=== PATIENT | male | born 1980 | race Caucasian/White ===

== ENCOUNTER 2018-02-06 18:37 | Outpatient (REF) | payer BC, SELFPAY ==
[2018-02-06 21:05] LABS: Anion Gap 9.3 mmol/L (3-11); BUN 15 mg/dL (7-18); CO2 27.7 mmol/L (21.0-32.0); Calcium 8.8 mg/dL (8.5-10.1); Chloride 102 mmol/L (98-107); Cholesterol 259 mg/dL (50-200); Glucose 100 mg/dL (70-100); HDL Cholesterol 28 mg/dL (40-60); LDL CHOLESTEROL 158 mg/dL (<100); Potassium 4.1 mmol/L (3.5-5.1); Sodium 139 mmol/L (136-145); Triglyceride 454 mg/dL (30-150)
== END 2018-02-06 18:57 ==
LOC: NCHCN 18:37
PROVIDERS: PCP Specialist/Technologist Athletic Trainer; Visit Provider Specialist/Technologist Athletic Trainer
DX: F41.9 Anxiety disorder, unspecified (principal); Z00.00 Encounter for general adult medical examination without abnormal findings; Z13.228 Encounter for screening for other metabolic disorders; Z13.220 Encounter for screening for lipoid disorders
CPT/HCPCS: 80048; 80061; 83721

== ENCOUNTER 2018-09-25 17:20 | Outpatient (REF) | payer BC, SELFPAY ==
[2018-09-25 21:51] LABS: Abs Immature Grans 0.02 k/cumm (0.0-0.09); Absolute Basophil Count 0.02 k/cumm (0.0-0.2); Absolute Eosinophil Count 0.16 k/cumm (0.0-0.7); Absolute Lymphocyte Count 1.72 k/cumm (1.2-3.4); Absolute Monocyte Count 0.61 k/cumm (0.11-0.7); Absolute Neutrophil Count 4.67 k/cumm (1.2-6.7); Basophils % 0.3; Eosinophils % 2.2; HCT 43.5 % (40.0-50.0); HGB 15.6 g/dL (13.5-17.5); Immature Grans % 0.3; Lymphocytes % 23.9; Mean Corp. HGB Concentration 35.9 g/dL (32.0-36.0); Mean Corpuscular Hemoglobin 30.4 pg (27.0-33.0); Mean Corpuscular Volume 84.6 fL (80-95); Mean Platelet Volume 10.5 fL (8.0-11.0); Monocytes % 8.5; Neutrophils % 64.8; Platelet Count 260 x1000/uL (130-400); RBC 5.14 m/cumm (4.50-6.00); RBC Distribution Width 12.5 % (11.8-14.1)
[2018-09-25 22:10] LABS: Albumin 3.9 g/dL (3.4-5.0); Alkaline Phosphatase 57 U/L (46-116); Anion Gap 10.4 mmol/L (3-11); BUN 14 mg/dL (7-18); Bilirubin, Total 0.5 mg/dL (0.2-1.0); CO2 24.6 mmol/L (21.0-32.0); CREATININE 0.99 mg/dL (0.70-1.30); Calcium 8.9 mg/dL (8.5-10.1); Chloride 102 mmol/L (98-107); Glucose 119 mg/dL (70-100); Potassium 4.1 mmol/L (3.5-5.1); Sodium 137 mmol/L (136-145); Total Protein 6.9 g/dL (6.4-8.2)
[2018-09-25 22:30] LABS: Mono Screening Negative (Negative)
[2018-09-25 22:51] LABS: ALT 66 U/L (12-78); AST 33 U/L (15-37)
== END 2018-09-25 17:40 ==
LOC: NCHCN 17:20
PROVIDERS: PCP Specialist/Technologist Athletic Trainer; Visit Provider Nurse Practitioner Family
DX: R53.83 Other fatigue (principal)
CPT/HCPCS: 80053; 85025; 86308; 87070

== ENCOUNTER 2018-10-29 13:19 | Emergency (ER) | payer BC, SELFPAY ==
[2018-10-29 13:22] VITALS: BP 132/76; PULSE 82; RESP 16; TEMP 36.9; O2SAT 97
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
== END 2018-10-29 14:35 | disposition home or self-care (01) ==
PROVIDERS: Emergency Provider Physician Assistant; PCP Specialist/Technologist Athletic Trainer
DX: H72.91 Unspecified perforation of tympanic membrane, right ear (principal)
CPT/HCPCS: 99283

== ENCOUNTER 2019-02-05 07:31 | Emergency (ER) | payer BC, SELFPAY ==
[2019-02-05] VITALS (48 sets, daily range): BP systolic 98–138; BP diastolic 55–79; PULSE 62–82; RESP 9–24; TEMP 36.6; O2SAT 94–98
--- NOTE | 2019-02-05 07:47 | W.ED.GENAD ---
Discharge Plan Disposition Patient Disposition: HOME Condition: Good Discharge Details Chief Complaint: Chest Pain Clinical Impression: Chest pain Primary Care Provider: Uriah Parra ED Provider: Dexter Pillai Home Meds and New Rx's Prescriptions: No Action venlafaxine 37.5 mg Tablet 37.5 mg PO BID RF: 0 atorvastatin 20 mg Tablet 20 mg PO QPM RF: 0 omeprazole 40 mg Capsule,Delayed Release(Dr/Ec) 40 mg PO DAILY RF: 0 calcium carbonate [Calcium Antacid Ultra Max St] 400 mg calcium (1,000 mg) Tablet,Chewable 1,000 mg PO PRN PRNRF: 0 loratadine [Claritin] 10 mg Tablet 10 mg PO DAILY PRNRF: 0 Discharge Instructions Instructions: Chest Pain (ED) Additional Instructions: At this time your EKGs and your blood work show no evidence of acute heart attack or blood clot. I suspect your symptoms potentially from muscles, pleurisy, or potentially reflux. If you notice any worsening of your symptoms, or any new symptoms such as vomiting, diarrhea, fever, chills, shortness of breath, chest pain, numbness, weakness, or fainting , please return immediately to the emergency department for reevaluation. Please follow up with your primary care provider as soon as possible for reassessment and reevaluation. As always, it was a pleasure participating in your medical care today. Referrals: Uriah Parra [Primary Care Provider] - Medical Decision Making This is a pleasant 38-year-old male with a past medical history of high cholesterol and GERD who presents today for evaluation of chest pain. He had an episode that lasted an hour 1 week ago, then return of symptoms roughly 30 minutes prior to arrival while he was driving and from work. No exertional component. No concerning historical red flags of tearing or ripping sensation, PE risk factors, tobacco abuse. He does have a strong family history of cardiac disease though. He did state that he had a negative stress test if you years ago. Physical exam is notably reassuring, vital signs normal, EKG does show atypical inverted T waves in V1 through V4, no prior EKG here for comparison. We will reach out to [facility] for further medical records. Although he states that his symptoms are atypical for his GERD, it certainly does raise concern for GERD with the burning sensation in his chest. Because of his strong family history we will order cardiac work-up, including serial troponins. We will give GI cocktail. Will monitor closely and reassess. Differential at this time is highest for GERD, musculoskeletal etiology and less likely for atypical ACS. 8:11 AM Stress test from [facility] demonstrates a negative cardiac stress test, no evidence of ischemia at that time. This was performed 10 years ago. He did have a mild incomplete right bundle branch block. EKG at that time shows inverted T waves in V1 and V3. No other abnormalities. Patient had no improvement of his symptoms with GI cocktail. 11:42 AM Patient's repeat troponin has returned normal, serial EKGs are unremarkable. Signs and symptoms appear clinically inconsistent with ACS. Heart score is low risk category. Signs and symptoms appear more consistent with nonspecific chest pain. We discussed risks and benefits of observation versus discharge, and at this time the patient feels comfortable at home. Patient will be discharged home with recommendations for close follow-up with his primary care provider. Discussed red flags which to return. I have extensively reviewed the treatment plan and discharge instructions with the patient. I have addressed all patient concerns at this time. The patient was made aware of what symptoms to monitor for that would warrant a return to the emergency department. Discussed the plan with the patient, they demonstrate verbal understanding and agreement with our assessment and plan at this time. EKG 7: 38 Rate 76, intervals normal except for a shortened AK, sinus rhythm, with incomplete right bundle branch block no significant ST elevations or depression, inverted T waves in V1 through V4, small Q wave in lead III. No evidence of STEMI. EKG 10: 41 Rate 69, intervals normal except for a shortened AK 166, slight QRS prolongation when awake, incomplete right bundle branch block, continued inverted T waves in V1 through V3. No evidence of STEMI. Small Q wave is present in lead III. FINDINGS: The heart is not enlarged. Lungs are clear. No pleural effusion seen. Conclusion no evidence of acute process. IMPRESSION: HPI General Date/Time Provider Initiated Documentation: 02/05/19 07:36. HPI Narrative: This is a pleasant 38-year-old male with a past medical history of high cholesterol, who presents today for evaluation of chest pain. Patient states that he had an episode that lasted 1 hour a week ago, this resolved on its own with rest and relax meant, it was nonexertional in onset. Throughout the week he was fine, however 30 minutes ago he had return of his symptoms while driving in from work. He describes it is a burning sensation in his chest, that radiates to his left shoulder. He denies any tearing or ripping sensation. He denies any chest heaviness. He denies any exertional component. He denies any positional component. He came to the ER for further assessment. Upon arrival to the ED his pain is notably improved. He now describes it as a dull ache. He does have a history of GERD but he states that this feels very different from that. He does have a strong family history of cardiac disease and did have a negative stress test 10 years ago. Denies PE risk factors such as recent long car rides, immobilization, recent surgery, prior history of DVT or PE, family history of PE or DVT, morbid obesity, exogenous estrogen and smoking, hemoptysis, history of cancer.He denies any other complaints at this time. No other modifying factors. Related Data Home Medications Medication Instructions Recorded Confirmed venlafaxine 37.5 mg PO BID 10/29/18 02/05/19 atorvastatin 20 mg PO QPM 02/05/19 02/05/19 calcium carbonate [Calcium Antacid 1,000 mg PO PRN PRN 02/05/19 02/05/[address]] loratadine [Claritin] 10 mg PO DAILY PRN 02/05/19 02/05/19 omeprazole 40 mg PO DAILY 02/05/19 02/05/19 Allergies Allergy/AdvReac Type Severity Reaction Status Date / Time No Known Allergies Allergy Unverified 02/05/19 07:43 General Stated Complaint: Chest Pain KELVIN: 2 Review of Systems Review of Systems ROS Unobtainable: All systems reviewed & are unremarkable except as noted in HPI and below [facility] Medical History (Updated 10/29/18 @ 13:33 by Kourtney Pop DO) Anxiety (Chronic) Social History Smoking/Tobacco Use Status: Never Alcohol Intake: current Alcohol Intake frequency: a few times a month Alcohol type: beer, wine and hard liquor Drug use: Never Do you feel safe at home: Yes Do you feel safe in your relationship?: Yes Exam Narrative Exam Narrative: 1.Const: Well-nourished, Well-developed, appearing stated age 2.Eyes: PERRL, no conjunctival injection, and symmetrical lids. 3.ENT: Atraumatic external nose and ears. Moist MM. Neck: Symmetric, trachea midline, No thyromegaly. 4.CVS: +S1/S2, No murmurs or gallops. Peripheral pulses 2+ and equal in all extremities. Brisk capillary refill in all extremities. 5.RESP: Unlabored respiratory effort. Clear to auscultation bilaterally. No wheezes rales or rhonchi 6.GI: Soft, Nontender/Nondistended, No hepatosplenomegaly. No guarding or rebound. 7.MSK: Normocephalic/Atraumatic, Extremities w/o deformity or ttp No cyanosis or clubbing, Normal movement of all extremities 8.Skin: Warm, Dry. No rashes or lesions. 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 Sensation grossly intact, no focal neurologic deficits. 10.Psych: (AAO) x3. Appropriate mood and affect Course Vital Signs Vital signs: Vital Signs Temperature 36.6 C 02/05/19 07:38 Pulse 78 02/05/19 07:38 Respiratory Rate 14 02/05/19 07:38 Blood Pressure 129/77 02/05/19 07:38 Pulse Oximetry 98 02/05/19 07:38 Temperature 36.6 C 02/05/19 07:38 Temperature Source Temporal Artery Scan 02/05/19 07:38 Pulse 78 02/05/19 07:38 Respiratory Rate 14 02/05/19 07:38 Respiratory Effort Non-Labored 02/05/19 07:42 Blood Pressure 129/77 02/05/19 07:38 Blood Pressure Position Supine 02/05/19 07:38 Pulse Oximetry 98 02/05/19 07:38 Oxygen Delivery Method Room Air 02/05/19 07:38 Oxygen Flow Rate 0 02/05/19 07:38 Pain Level 4 02/05/19 07:38
[2019-02-05] MEDS: Acetaminophen 500 MG TAB 1000 MG PO (07:53)
[2019-02-05] MEDS: Aspirin 81 MG CHEW 324 MG CH (07:53)
[2019-02-05] MEDS: Normal Saline 1,000 ML 1000 ML IV (07:57)
[2019-02-05 07:58] LABS: Abs Immature Grans 0.02 k/cumm (0.0-0.09); Absolute Basophil Count 0.02 k/cumm (0.0-0.2); Absolute Eosinophil Count 0.09 k/cumm (0.0-0.7); Absolute Lymphocyte Count 1.28 k/cumm (1.2-3.4); Absolute Monocyte Count 0.44 k/cumm (0.11-0.7); Absolute Neutrophil Count 4.17 k/cumm (1.2-6.7); Basophils % 0.3; Eosinophils % 1.5; HCT 45.7 % (40.0-50.0); HGB 16.4 g/dL (13.5-17.5); Immature Grans % 0.3; Lymphocytes % 21.3; Mean Corp. HGB Concentration 35.9 g/dL (32.0-36.0); Mean Corpuscular Volume 83.7 fL (80-95); Mean Platelet Volume 9.7 fL (8.0-11.0); Monocytes % 7.3; Neutrophils % 69.3; Platelet Count 259 x1000/uL (130-400); RBC 5.46 m/cumm (4.50-6.00); RBC Distribution Width 12.4 % (11.8-14.1); White Blood Cell Count 6.02 k/cumm (4.4-10.8)
[2019-02-05 08:11] LABS: ALT 80 U/L (16-63); AST 22 U/L (15-37); Alkaline Phosphatase 55 U/L (46-116); Anion Gap 9.4 mmol/L (3-11); BUN 18 mg/dL (7-18); Bilirubin, Total 0.6 mg/dL (0.2-1.0); CO2 27.6 mmol/L (21.0-32.0); CREATININE 1.14 mg/dL (0.70-1.30); Calcium 8.7 mg/dL (8.5-10.1); Chloride 103 mmol/L (98-107); Glucose 103 mg/dL (70-100); PTT Activated 25.9 sec (21.0-31.4); Potassium 3.7 mmol/L (3.5-5.1); Prothrombin Time 10.5 sec (9.3-11.0); Sodium 140 mmol/L (136-145); Total Protein 7.4 g/dL (6.4-8.2)
--- NOTE | 2019-02-05 08:15 | DI.RAD_ITS ---
EXAM: XR CHEST 2V PA LATERAL INDICATION: left sided CP. COMPARISON: ABD FLAT UPRIGHT PA CHEST from 06/10/2015 TECHNIQUE: 2D digital imaging was performed. FINDINGS: The heart is not enlarged. Lungs are clear. No pleural effusion seen. Conclusion no evidence of ac savi process. IMPRESSION:
[2019-02-05 08:16] LABS: Troponin I < 0.05 ng/mL (0.00-0.06)
[2019-02-05 08:34] LABS: D-Dimer 300 ng/mlFEU (<500)
[2019-02-05 11:20] LABS: Troponin I < 0.05 ng/mL (0.00-0.06)
== END 2019-02-05 12:07 | disposition home or self-care (01) ==
PROVIDERS: Emergency Provider Student in an Organized Health Care Education/Training Program; PCP Specialist/Technologist Athletic Trainer
DX: R07.9 Chest pain, unspecified (principal)
CPT/HCPCS: 36415; 80053; 93005; 96360; 99285; 71046; 84484; 85025; 85379; 85610; 85730; 93010

== ENCOUNTER 2019-02-09 14:49 | Outpatient (CLI) | payer BC, SELFPAY ==
[2019-02-09 19:15] LABS: Calculated LDL 108 mg/dL; Cholesterol 211 mg/dL (50-200); HDL Cholesterol 24 mg/dL (40-60); Triglyceride 396 mg/dL (30-150)
== END 2019-02-09 15:09 ==
PROVIDERS: PCP Specialist/Technologist Athletic Trainer; Visit Provider Specialist/Technologist Athletic Trainer
DX: Z13.220 Encounter for screening for lipoid disorders (principal)
CPT/HCPCS: 80061

== ENCOUNTER 2019-09-10 13:53 | Outpatient (CLI) | payer BC, SELFPAY ==
--- NOTE | 2019-09-10 14:53 | DI.RAD_ITS ---
EXAM: XR SHOULDER RT COMPLETE 2+V CLINICAL HISTORY: RT SHOULDER PAIN, M25.511. TECHNIQUE: 2D digital imaging was performed. COMPARISON: No exams were available for comparison FINDINGS: BONES: No acute fracture is present. No bony destructive lesion is seen. JOINTS: No dislocation present. Mild degenerative changes are seen at the acromioclavicular joint. SOFT TISSUE: Normal. IMPRESSION: Mild degenerative changes of the right AC joint. DATA REPOSITORY: RADIATION DOSE DELIVERED:
== END 2019-09-10 14:13 ==
PROVIDERS: PCP Specialist/Technologist Athletic Trainer; Visit Provider Nurse Practitioner Family
DX: M25.511 Pain in right shoulder (principal); M19.011 Primary osteoarthritis, right shoulder
CPT/HCPCS: 73030

== ENCOUNTER 2022-03-19 16:29 | Emergency (ER) | payer BC, SELFPAY ==
[2022-03-19 16:37] VITALS: BP 127/79; PULSE 72; RESP 16; TEMP 36.9; O2SAT 98
--- NOTE | 2022-03-19 17:12 | DI.RAD_ITS ---
Exam(s) XR CERVICAL SPINE COMP 4-5V EXAM: XR CERVICAL SPINE COMP 4-5V CLINICAL HISTORY: Neck pain. TECHNIQUE: 2D digital imaging was performed. COMPARISON: No exams were available for comparison FINDINGS: BONES: No fracture or destructive lesion. Vertebral bodies are unremarkable. DISKS: Intervertebral disc spaces are maintained. ALIGNMENT: Some straightening of the normal cervical lordosis which could be secondary to muscle spas m. The odontoid and atlantoaxial articulations are normal. SOFT TISSUE: Normal. The lung apices are clear. IMPRESSION: Unremarkable radiographs of the cervical spine. DATA REPOSITORY: RADIATION DOSE DELIVERED:
--- NOTE | 2022-03-19 17:13 | W.ED.GENAD ---
Discharge Plan Disposition Patient Disposition: Home Condition: Stable Discharge Details Clinical Impression: Cervical radicular pain Primary Care Provider: Unknown,Unknown ED Provider: Meeta Olguin Home Meds and New Rx's Prescriptions: Continued atorvastatin 20 mg Tablet 20 mg PO QPM Label Comments: states he should be taking but doesn't omeprazole 40 mg Capsule,Delayed Release(Dr/Ec) 20 mg PO DAILY loratadine [Claritin] 10 mg Tablet 10 mg PO DAILY PRN ibuprofen [Ibuprofen IB] 200 mg Tablet 400 mg PO Q4H PRN acetaminophen 500 mg Tablet 1,000 mg PO Q4H Discharge Instructions Instructions: Neck Pain (ED) Additional Instructions: Please take the tramadol and muscle relaxers as directed. Do not drive while taking these medications as it may make you sleepy. Follow up with primary care provider in 3-5 days. Return to ED sooner if any worsening or concerns. Increase oral fluids. Please take Tylenol or Ibuprofen with food every 4-6 hours as needed for pain and swelling. Medical Decision Making 41-year-old male presents to the ER with chief complaint of stiff neck which is worsened over the last couple of days. He reports that when he extends his neck Except for the ceiling he gets some numbness and tingling in his left arm. He denies any recent trauma. Cervical x-ray ordered, Flexeril This time reaction, sepsis, unremarkable physical exam. Reevaluation patient reports that he feels much better after the Flexeril. We will give tramadol to go which patient reports he is taking that before. Discussed strict return instructions and follow-up care patient will place care management list today to establish PCP. This text was generated using [employer] system, please disregard any oddities of phrase or misspellings. Imaging Data Radiologic Study: Imaging: X-Ray Radiologist's impression: Imaging protocol: XR of the spine. Exam focused on the cervical spine. Views: 1 view. COMPARISON: CR CERVICAL SP. LIMITED (TRAUMA) 06/10/2015 14:24 FINDINGS: Bones/joints: Straightening of the normal cervical lordosis. No acute fracture or subluxation. No significant degenerative changes are seen. Soft tissues: Normal. IMPRESSION: No significant degenerative changes are seen. Sign Out No HPI General Mode of arrival: ambulatory. Date/Time Provider Initiated Documentation: 03/19/22 16:36. Limitations to Documentation: no limitations. Information obtained by: patient, RN notes reviewed and old records reviewed. HPI Narrative: 41-year-old male presents to the ER with chief complaint of stiff neck which is worsened over the last couple of days. He reports that when he extends his neck Except for the ceiling he gets some numbness and tingling in his left arm. He denies any recent trauma. This past medical history impingement syndrome of his right shoulder exercises right shoulder. He has been taking Tylenol and ibuprofen levels no relief. He reports that he usually sees a chiropractor in stretches and that will relieve his pain. He also endorses headaches from the radiation of the pain. Related Data Home Medications Medication Instructions Recorded Confirmed atorvastatin 20 mg tablet 20 mg PO QPM 02/05/19 09/25/19 loratadine 10 mg tablet (Claritin) 10 mg PO DAILY PRN 02/05/19 03/19/22 omeprazole 40 mg capsule,delayed 20 mg PO DAILY 02/05/19 03/19/22 release acetaminophen 500 mg tablet 1,000 mg PO Q4H 03/19/22 03/19/22 ibuprofen 200 mg tablet (Ibuprofen 400 mg PO Q4H PRN 03/19/22 03/19/22 IB) Allergies Allergy/AdvReac Type Severity Reaction Status Date / Time No Known Allergies Allergy Unverified 03/19/22 16:43 General Stated Complaint: Nk/Back Pain KELVIN: 3 Review of Systems All systems reviewed & are unremarkable except as noted in HPI and below ENT Ears, Nose, Mouth, and Throat: Reports neck pain Musculoskeletal Musculoskeletal: Reports as per HPI, Reports neck pain, Reports radiating pain into limb (Left arm), Reports stiffness and Reports tingling Neurologic Neurologic: Reports tingling PFSH All Active Problems (Updated 03/19/22 @ 18:36 by Meeta Olguin NP) Cervical radicular pain (Acute) No-show for appointment (Acute) Impingement syndrome of right shoulder (Acute ~05/2019) Bursitis of right shoulder (Acute ~05/2019) SLAP lesion of right shoulder (Acute ~05/2019) Medical History (Updated 03/19/22 @ 18:36 by Meeta Olguin NP) Anxiety Surgical History H/O wisdom tooth extraction Social History Smoking/Tobacco Use Status: Never Smoking risk assessment performed?: Yes Alcohol Intake: current Alcohol Intake frequency: a few times a month Alcohol type: beer, wine and hard liquor Drug use: Never Do you feel safe at home: Yes Do you feel safe in your relationship?: Yes Exam Narrative Exam Narrative: Constitutional: Alert and oriented x3. Appears stated age. Normal body habitus. Head: Normocephalic, no trauma. Eyes: Pupils PERRL, Red reflex noted, EOM's intact. Eyelids symmetrical without lesions, discharge, or swelling. ENT: Bilateral TM's WNL, External ear normal to inspection, no mastoid TTP, swelling, or erythema, Nasal turbinates WNL, no nasal discharge. Normal dentition, Posterior pharynx WNL, no exudate. Chest: RRR, Normal S1, S2, distal pulses intact. Resp: Lungs clear to auscultation bilaterally, no wheezes, rales, or rhonchi. Abdomen: Soft, non-distended, Normoactive bowel sounds all 4 quads. Musculoskeletal: Normal gait, 5/5 strength to all four extremities. Patient is able to rotate head without difficulty no tenderness with palpation to the C-spine or paraspinous tenderness. Skin: No suspicious rashes or lesions. Capillary refill less than 2 sec. Neurologic: Cranial nerves II-XII intact. Alert and oriented x 3. Motor: No deficits noted. Sensory: Intact bilaterally all 4 extremities. Reflexes: DTR's intact bilaterally.. Hematologic/Lymphatic: No ecchymosis, no lymphadenopathy. Course Vital Signs Vital signs: Vital Signs Temperature 36.9 C 03/19/22 16:37 Pulse 72 03/19/22 16:37 Respiratory Rate 16 03/19/22 16:37 Blood Pressure 127/79 03/19/22 16:37 Pulse Oximetry 98 03/19/22 16:37 Temperature 36.9 C 03/19/22 16:37 Temperature Source Skin 03/19/22 16:37 Pulse 72 03/19/22 16:37 Respiratory Rate 16 03/19/22 16:37 Blood Pressure 127/79 03/19/22 16:37 Blood Pressure Position Sitting 03/19/22 16:37 Pulse Oximetry 98 03/19/22 16:37 Oxygen Delivery Method Room Air 03/19/22 16:37 Oxygen Flow Rate 0 03/19/22 16:37 Pain Level 5 03/19/22 16:37
[2022-03-19] MEDS: Cyclobenzaprine 10 MG TAB PO (17:58)
--- NOTE | 2022-03-19 18:25 | DI.VRAD_ITS ---
PROCEDURE INFORMATION: Exam: XR Spine; Cervical Exam date and time: 03/19/2022 17:23 Age: 41 years old Clinical indication: Symptoms: Neck pain TECHNIQUE: Imaging protocol: XR of the spine. Exam focused on the cervical spine. Views: 1 view. COMPARISON: CR CERVICAL SP. LIMITED (TRAUMA) 06/10/2015 14:24 FINDINGS: Bones/joints: Straightening of the normal cervical lordosis. No acute fracture or subluxation. No significant degenerative changes are seen. Soft tissues: Normal. IMPRESSION: No significant degenerative changes are seen. Dictated and Authenticated by: Diamante Downey MD. Ordering:JOHN Tim MD
--- NOTE | 2022-03-19 18:36 | NUR.NOTE ---
Nursing Note: PT info given to care management to establish care. Mariama, ED
[2022-03-19 18:40] VITALS: BP 128/82; PULSE 67; TEMP 36.5; O2SAT 96
[2022-03-19] MEDS: Cyclobenzaprine 10 MG TAB, 3 TABS/BTL PO (18:47)
== END 2022-03-19 18:46 | disposition home or self-care (01) ==
PROVIDERS: Emergency Provider Registered Nurse Emergency; PCP Nurse Practitioner Family
DX: M54.12 Radiculopathy, cervical region (principal)
CPT/HCPCS: 99283; 72050; 99284

== ENCOUNTER 2022-04-08 13:52 | Outpatient (REF) | payer BC, SELFPAY ==
[2022-04-08 15:21] LABS: ALT 66 U/L (16-63); AST 22 U/L (15-37); Albumin 4.4 g/dL (3.4-5.0); Alkaline Phosphatase 56 U/L (46-116); Anion Gap 8.2 mmol/L (3-11); BUN 13 mg/dL (7-18); Bilirubin, Total 0.6 mg/dL (0.2-1.0); CO2 28.8 mmol/L (21.0-32.0); Calcium 9.4 mg/dL (8.5-10.1); Chloride 100 mmol/L (98-107); Cholesterol 272 mg/dL (<200); Estimated GFR 98.18 (mL/min/1.73m2); Glucose 96 mg/dL (74-106); HDL Cholesterol 32 mg/dL (40-60); Potassium 4.6 mmol/L (3.5-5.1); Sodium 137 mmol/L (136-145); Total Protein 7.4 g/dL (6.4-8.2); Triglyceride 407 mg/dL (<150)
[2022-04-08 15:42] LABS: LDL CHOLESTEROL 158 mg/dL (<100)
== END 2022-04-08 13:53 | disposition home or self-care (01) ==
LOC: NCHCN 13:52
PROVIDERS: Visit Provider Nurse Practitioner Family
DX: E78.5 Hyperlipidemia, unspecified (principal); Z00.00 Encounter for general adult medical examination without abnormal findings
CPT/HCPCS: 80053; 80061; 83721

== ENCOUNTER 2023-04-04 10:11 | Outpatient (REF) | payer BC, SELFPAY ==
--- OUTSIDE RECORDS SUMMARY | 2023-04-04 10:17 | XMS_ITS | Continuity of Care Document ---
Author Name Unknown Organization [facility] Address [address] [place] [id number] Encounter [facility] FIN NBR [id number] Date(s): 01/02/23 - 01/02/[address] [id number] Encounter Diagnosis Cervicalgia(Discharge Diagnosis) - 01/02/23 Discharge Disposition: Home or Self Care Attending Physician: Bharath Albrecht MD Admitting Physician: Bharath Albrecht MD Allergies, Adverse Reactions, Alerts No Known Medication Allergies Medications atorvastatin 10 mg oral tablet 0 Refill(s) Start Date: 01/02/23 Status: Ordered cyclobenzaprine 10 mg oral tablet TAKE 1 TABLET BY MOUTH EVERY 8 HOURS NEEDED FOR NECK PAIN Start Date: 01/02/23 Status: Ordered cyclobenzaprine 5 mg oral tablet 5 mg = 1 tab, Oral, TID, PRN as needed for muscle spasm, X 5 days, # 15 tab, 0 Refill(s), 01/07/23 10:14:00 AM CDT, Pharmacy: [facility] [id number], 167, cm, 01/02/23 11:01:00 EDT, Height/Length Dosing, 90.7, kg, 01/02/23 11:01:00 EDT, Weight Dosing Start Date: 01/02/23 Stop Date: 01/07/23 Status: Ordered predniSONE 10 mg oral tablet See Instruction, Oral, Daily, 4 tabs daily x3 days, 3 tabs daily x3 days, 2 tabs daily x3 days, 1 tab daily x3 days, X 12 days, # 30 tab, 0 Refill(s), 01/14/23 10:14:00 AM CDT, Pharmacy: [id number], 167, cm, 01/02/23 11:01:00 EDT, Height/Length Dosing, 90.7, kg, 01/02/23 11:01:00 EDT, Weight Dosing Start Date: 01/02/23 Stop Date: 01/14/23 Status: Ordered Mental Status 01/02/23 Eye Opening Response [place] Spontaneous ly Best Verbal Response [place] Oriented Best Motor Response [place] Obeys comman ds Ayana Coma Score 15 Results Radiology Reports * Exam Date Time Procedure Performing Provider Status 01/02/23 11:24 AM XR Spine Cervical 2 or 3 Views Christina Simpson (Verified) Notes: (XR Spine Cervical 2 or 3 Views) Reason For Exam: neck pain XR Spine Cervical 2 or 3 Views PROCEDURE INFORMATION: Exam: XR Cervical Spine Exam date and time: 01/02/2023 11:19 AM Age: 42 years old Clinical indication: Neck pain TECHNIQUE: Imaging protocol: Radiologic exam of the cervical spine. Views: 2 or 3 views. COMPARISON: No relevant prior studies available. FINDINGS: Bones/joints: Degenerative change and diminished cervical lordosis. Anatomic alignment. Soft tissues: Ligamentous calcification. IMPRESSION: Degenerative change and diminished cervical lordosis. THIS DOCUMENT HAS BEEN ELECTRONICALLY SIGNED BY YIFAN FLORENCE MD on 01/02/2023 11:35 AM Final Signed by: Yifan Florence MD Signed (Electronic Signature): 01/02/2023 11:35 am Vital Signs Most recent to oldest [Reference Range]: 1 Temperature Tympanic [36.6-37.9 Deg C] 3 6.2 Deg C *LOW* (01/02/23 10:49 AM) Peripheral Pulse Rate [60-100 bpm] 72 bp m (01/02/23 10:49 AM) Respiratory Rate [12-24 br/min] 20 br/mi n (01/02/23 10:49 AM) Blood Pressure [90-140/60-90 mmHg] 131/8 7mmHg (01/02/23 10:49 AM) Weight 90.70 kg (01/02/23 10:49 AM) Weight Dosing 90.70 kg (01/02/23 11:01 AM) Height 167.000 cm (01/02/23 10:49 AM) Height/Length Dosing 167.000 cm (01/02/23 11:01 AM) Body Mass Index 33.000 kg/m2 (01/02/23 10:49 AM) Social History Social History Type Response Tobacco Never tobacco user T obacco Use:. Sex Hospital Discharge Instructions Patient Education 01/02/2023 10:48:50 Musculoskeletal Pain Musculoskeletal Pain Musculoskeletal pain refers to aches and pains in your bones, joints, muscles, and the tissues thatsurround them. This pain can occur in any part of the body. It can last for a short time (acute) ora long time (chronic). A physical exam, lab tests, and imaging studies may be done to find the cause of your musculoskeletal pain. Follow these instructions at home: Lifestyle ??? Try to control or lower your stress levels. Stress increases muscle tension and can worsen musculoskeletal pain. It is important to recognize when you are anxious or stressed and learn ways to manage it. This may include: ??? Meditation or yoga. ??? Cognitive or behavioral therapy. ??? Acupuncture or massage therapy. ??? You may continue all activities unless the activities cause more pain. When the pain gets better, slowly resume your normal activities. Gradually increase the intensity and duration of your activities or exercise. Managing pain, stiffness, and swelling ??? Treatment may include medicines for pain and inflammation that are taken by mouth or applied tothe skin. Take [id number] and prescription medicines only as told by your health care provider. ??? When your pain is severe, bed rest may be helpful. Lie or sit in any position that is comfortable, but get out of bed and walk around at least every couple of hours. ??? If directed, apply heat to the affected area as often as told by your health care provider. Usethe heat source that your health care provider recommends, such as a moist heat pack or a heating pad. ??? Place a towel between your skin and the heat source. ??? Leave the heat on for 20???30 minutes. ??? Remove the heat if your skin turns bright red. This is especially important if you are unable to feel pain, heat, or cold. You may have a greater risk of getting burned. ??? If directed, put ice on the painful area. To do this: ??? Put ice in a plastic bag. ??? Place a towel between your skin and the bag. ??? Leave the ice on for 20 minutes, 2???3 times a day. ??? Remove the ice if your skin turns bright red. This is very important. If you cannot feel pain, heat, or cold, you have a greater risk of damage to the area. General instructions ??? Your health care provider may recommend that you see a physical therapist. This person can helpyou come up with a safe exercise program. ??? If told by your health care provider, do physical therapy exercises to improve movement and strength in the affected area. ??? Keep all follow-up visits. This is important. This includes any physical therapy visits. Contact a health care provider if: ??? Your pain gets worse. ??? Medicines do not help ease your pain. ??? You cannot use the part of your body that hurts, such as your arm, leg, or neck. ??? You have trouble sleeping. ??? You have trouble doing your normal activities. Get help right away if: ??? You have a new injury and your pain is worse or different. ??? You feel numb or you have tingling in the painful area. Summary ??? Musculoskeletal pain refers to aches and pains in your bones, joints, muscles, and the tissues that surround them. ??? This pain can occur in any part of the body. ??? Your health care provider may recommend that you see a physical therapist. This person can helpyou come up with a safe exercise program. Do any exercises as told by your physical therapist. ??? Lower your stress level. Stress can worsen musculoskeletal pain. Ways to lower stress may include meditation, yoga, cognitive or behavioral therapy, acupuncture, and massage therapy. This information is not intended to replace advice given to you by your health care provider. Make sure you discuss any questions you have with your health care provider. Document Revised: 08/14/2020 Document Reviewed: 07/23/2020 [employer] Patient Education ?? 2022 [employer] 01/02/2023 10:48:41 Neck Exercises Neck Exercises Ask your health care provider which exercises are safe for you. Do exercises exactly as told by your health care provider and adjust them as directed. It is normal to feel mild stretching, pulling, tightness, or discomfort as you do these exercises. Stop right away if you feel sudden pain or your pain gets worse. Do not begin these exercises until told by your health care provider. Neck exercises can be important for many reasons. They can improve strength and maintain flexibility in your neck, which will help your upper back and prevent neck pain. Stretching exercises Rotation neck stretching 1. Sit in a chair or stand up. 2. Place your feet flat on the floor, shoulder-width apart. 3. Slowly turn your head (rotate) to the right until a slight stretch is felt. Turn it all the way to the right so you can look over your right shoulder. Do not tilt or tip your head. 4. Hold this position for 10???30 seconds. 5. Slowly turn your head (rotate) to the left until a slight stretch is felt. Turn it all the way to the left so you can look over your left shoulder. Do not tilt or tip your head. 6. Hold this position for 10???30 seconds. Repeat times. Complete this exercise times a day. Neck retraction 1. Sit in a sturdy chair or stand up. 2. Look straight ahead. Do not bend your neck. 3. Use your fingers to push your chin backward (retraction). Do not bend your neck for this movement. Continue to face straight ahead. If you are doing the exercise properly, you will feel a slight sensation in your throat and a stretch at the back of your neck. 4. Hold the stretch for 1???2 seconds. Repeat times. Complete this exercise times a day. Strengthening exercises Neck press 1. Lie on your back on a firm bed or on the floor with a pillow under your head. 2. Use your neck muscles to push your head down on the pillow and straighten your spine. 3. Hold the position as well as you can. Keep your head facing up (in a neutral position) and your chin tucked. 4. Slowly count to 5 while holding this position. Repeat times. Complete this exercise times a day. Isometrics These are exercises in which you strengthen the muscles in your neck while keeping your neck still (isometrics). 1. Sit in a supportive chair and place your hand on your forehead. 2. Keep your head and face facing straight ahead. Do not flex or extend your neck while doing isometrics. 3. Push forward with your head and neck while pushing back with your hand. Hold for 10 seconds. 4. Do the sequence again, this time putting your hand against the back of your head. Use your head and neck to push backward against the hand pressure. 5. Finally, do the same exercise on either side of your head, pushing sideways against the pressureof your hand. Repeat times. Complete this exercise times a day. Prone head lifts 1. Lie face-down (prone position), resting on your elbows so that your chest and upper back are raised. 2. Start with your head facing downward, near your chest. Position your chin either on or near yourchest. 3. Slowly lift your head upward. Lift until you are looking straight ahead. Then continue lifting your head as far back as you can comfortably stretch. 4. Hold your head up for 5 seconds. Then slowly lower it to your starting position. Repeat times. Complete this exercise times a day. Supine head lifts 1. Lie on your back (supine position), bending your knees to point to the ceiling and keeping your feet flat on the floor. 2. Lift your head slowly off the floor, raising your chin toward your chest. 3. Hold for 5 seconds. Repeat times. Complete this exercise times a day. Scapular retraction 1. Stand with your arms at your sides. Look straight ahead. 2. Slowly pull both shoulders (scapulae) backward and downward (retraction) until you feel a stretch between your shoulder blades in your upper back. 3. Hold for 10???30 seconds. 4. Relax and repeat. Repeat times. Complete this exercise times a day. Contact a health care provider if: ??? Your neck pain or discomfort gets worse when you do an exercise. ??? Your neck pain or discomfort does not improve within 2 hours after you exercise. If you have any of these problems, stop exercising right away. Do not do the exercises again unlessyour health care provider says that you can. Get help right away if: ??? You develop sudden, severe neck pain. If this happens, stop exercising right away. Do not do the exercises again unless your health care provider says that you can. This information is not intended to replace advice given to you by your health care provider. Make sure you discuss any questions you have with your health care provider. Document Revised: 10/06/2021 Document Reviewed: 10/06/2021 [employer] Patient Education ?? 2022 [employer] 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 This pain started the day after throwing hay mindi. Describes an an achy pain. Had similar pains last February and was diagnosed and treated for a muscle spasm. HE has had no recent injury to the head, back or neck. No falls or MVA. Pain worsens with flexion and rotation of the next. At its worse it radiated down the lateral aspect of the shoulder. He is not experiencing any headaches,??fevers, chest pains, dyspnea, abdominal pains, nausea or vomiting. No loos of sensation or motor control of the extremities. No cardiac history. He has been using topical analgesics and his home PT exercises which have been helping with the pain. Review of Systems: See HPI Physical Exam Vitals & Measurements T:??36.2?C ??(Tympanic)?? HR:??72??(Peripheral)?? RR:??20?? BP:??131/87?? SpO2:??100%?? HT:??167.000??cm?? WT:??90.70??kg?? BMI:??33.000?? Pain Score:??6?? General: Patient is alert and engaging, appears well. Is in no acute distress. Speaking comfortablyin full sentences.?? Constitutional: No fevers, chills or diaphoresis.?? HEENT: Head normocephalic and atraumatic. Neck supple w/o lymphadenopathy or JVD. Trachea midline. No c-spine tenderness. Tenderness along left upper trapezius with palpation. Limited left lateral flexion and rotation of the neck d/t pain. No carotid bruits auscultated. Respiratory: ??No obvious work of breathing, regular rate. BS equal b/l, clear to auscultation. Cardiovascular: Heart regular rate and rhythm w/o murmurs, rubs or gallops. No peripheral edema present.?? GI: normoactive BS. Abdomen soft non tender, nondistended without guarding, rebound or rigidity. NoHSM Extremities: No obvious deformities. FROM.?? Integumentary: Skin warm and pink. No rashes or ecchymosis present.?? Neuro: CN III-XII grossly intact.?? Psychiatric: acting appropriate for age and circumstance. Normal mood without obvious ??affect.?? Medical Decision Making: Patient is a pleasant, well appearing 42 year old male with a history consistent with cervicalgia due to a muscle spasm. Which was likely caused by throwing hay. He explains that these are the same symptoms hes experienced??in the past and did well with a muscle relaxer and PT. Vitals obtained and all within normal limits. He is not describing any red flag symptoms including chest pains, dyspnea,fevers, paraesthesias, paralysis, abdominal pains or headache.?? Xray was obtained without acute findings. Given Toradol in ED which improved the pain. He is having pain with ROM of the next but otherwise the exam is unremarkable. He is having success with topical Voltaren so plans to continue that and add on a prednisone course, cyclobenzaprine and warm compresses. Procedure No Qualifying Data Assessment/Plan 1.??Cervicalgia??M54.2 Plans to continue with topical analgesics, prednisone taper, muscle relaxer and f/u with PCP for PTreferral. ED precautions understood. Ordered: Discharge Patient, 01/02/23 11:51:00 EDT ?? Orders: cyclobenzaprine 5 mg oral tablet, 5 mg = 1 tab, Oral, TID, PRN as needed for muscle spasm, X 5 days, # 15 tab, 0 Refill(s), 01/07/23 11:14:00 EDT, Pharmacy: [id number], 167, cm, 01/02/23 11:01:00 EDT, Height/Length Dosing, 90.7, kg, 01/02/23 11:01:00 EDT, Weight Dosing predniSONE 10 mg oral tablet, See Instruction, Oral, Daily, 4 tabs daily x3 days, 3 tabs daily x3 days, 2 tabs daily x3 days, 1 tab daily x3 days, X 12 days, # 30 tab, 0 Refill(s), 01/14/23 11:14:00 EDT, Pharmacy: [id number], 167, cm, 01/02/23 11:01:00 EDT, Height/Lengt... Patient Education Musculoskeletal Pain Neck Exercises Follow Up With When Contact Information Follow up with primary care provider Within 1 month Additional Instructions: Medication Reconciliation New Prescription predniSONE (predniSONE 10 mg oral tablet)See Instruction Oral (given by mouth) every day for 12 Days. 4 tabs daily x3 days, 3 tabs daily x3 days, 2 tabs daily x3 days, 1 tab daily x3 days. Refills: 0. ?? Changed cyclobenzaprine (cyclobenzaprine 10 mg oral tablet)TAKE 1 TABLET BY MOUTH EVERY 8 HOURS NEEDED FOR NECK PAIN. ?? cyclobenzaprine (cyclobenzaprine 5 mg oral tablet)1 tab Oral (given by mouth) 3 times a day as needed as needed for muscle spasm for 5 Days. Refills: 0. ?? Unchanged atorvastatin (atorvastatin 10 mg oral tablet) Problem List/Past Medical History Ongoing No qualifying data Historical No qualifying data Medication Administration Given acetaminophen, 1000 mg, Oral Toradol, 30 mg, IM Allergies No Known Medication Allergies Social History Electronic Cigarette/Vaping Electronic Cigarette Use: Never. Tobacco Never tobacco user Tobacco Use:. Diagnostic Results XR Spine Cervical 2 or 3 Views 01/02/2023 11:35 EDT XR Spine Cervical 2 or 3 Views ?? 01/02/23 11:19:06 PROCEDURE INFORMATION: Exam: XR Cervical Spine Exam date and time: 01/02/2023 11:19 AM Age: 42 years old Clinical indication: Neck pain ?? TECHNIQUE: Imaging protocol: Radiologic exam of the cervical spine. Views: 2 or 3 views. ?? COMPARISON: No relevant prior studies available. ?? FINDINGS: Bones/joints: Degenerative change and diminished cervical lordosis. Anatomic alignment. Soft tissues: Ligamentous calcification. ?? IMPRESSION: Degenerative change and diminished cervical lordosis. ? THIS DOCUMENT HAS BEEN ELECTRONICALLY SIGNED BY YIFAN FLORENCE MD on 01/02/2023 11:35 AM ?? Signed By: Yifan Florence MD Electronically Signed on 01/02/23 12:05 PM BERT Agudelo Emergency department Discharge instructions * BERT Agudelo: PERFORM Event Display: ED Discharge Information Authored Date: [id number] PRAVEENA CHEN :1980 Age:42 years Sex:Male Visit Date:01/02/2023 Discharge Instructions We would like to thank you for allowing us to assist you with your healthcare needs. The following includes patient education materials and information regarding your injury/illness. Diagnosis from Today's Visit Cervicalgia Discharge Vitals Temperature??(Tympanic) 97.2 ??F (36.2 ??C) Heart Rate??(Peripheral) 72 Respiratory Rate?? 20 Blood Pressure?? 131/87?? Height?? 65.75 in (167.000 cm) Weight?? 199.99 lb (90.70 kg) BMI?? 33.000 Allergies No Known Medication Allergies What to Do Next Instructions from Your Care Team You are seen here today for??neck pain that I believe is due to a muscle strain??or muscle spasm. ??I have sent you a prescription for a prednisone taper and a muscle relaxer.?? Please continue with the topical analgesics and warm compresses over the neck. ??You may also??get a??massage which may??help release the muscle spasm.?? Please take precautions with any repetitive use of the arms or shoulders??or overhead lifting. ??I would recommend??rest for the next 7 to 10 days. ??Please follow-up with your PCP??in regards to scheduling a PT??appointment as this has worked for you in the past.?? When you are taking the prednisone I recommend taking it early in the day after eating and do not take an NSAID such as ibuprofen or Aleve while on this taper. ??You may continue to take Tylenol??for the pain as well. Return to the emergency department if you have any worsening of pain any loss of sensation or motorcontrol in your extremities, any fever, headaches??or other worrisome symptoms. You Need to Schedule the Following Appointments Follow Up with??Follow up with primary care provider When:??Within 1 month You were treated today on an emergency basis; it may be simons to contact your primary care provider to notify them of your visit today. You may have been referred to your regular doctor or a specialist, please follow up as instructed. If your condition worsens or you can't get in to see the doctor, contact the Emergency Department. Medications What How Much When Instructions Next Dose New predniSONE (predniSONE 10 mg oral tablet) See Instruction Oral (given by mouth) Every day Duration: 12 Days 4 tabs daily x3 days, 3 tabs daily x3 days, 2 tabs daily x3 days, 1 tab daily x3 days ?? Pickup at [place] [id number] Changed cyclobenzaprine (cyclobenzaprine 10 mg oral tablet) TAKE 1 TABLET BY MOUTH EVERY 8 HOURS NEEDED FOR NECK PAIN ?? Changed cyclobenzaprine (cyclobenzaprine 5 mg oral tablet) 1 tab Oral (given by mouth) 3 times a day as needed for as needed for muscle spasm Duration: 5 Days Pickup at [place] [address] Unchanged atorvastatin (atorvastatin 10 mg oral tablet) Pharmacy Information [place] [address]: [address] [place], [place] [phone] Education Materials Musculoskeletal Pain Musculoskeletal pain refers to aches and pains in your bones, joints, muscles, and the tissues thatsurround them. This pain can occur in any part of the body. It can last for a short time (acute) ora long time (chronic). A physical exam, lab tests, and imaging studies may be done to find the cause of your musculoskeletal pain. Follow these instructions at home: Lifestyle ? Try to control or lower your stress levels. Stress increases muscle tension and can worsen musculoskeletal pain. It is important to recognize when you are anxious or stressed and learn ways to manageit. This may include: ? Meditation or yoga. ? Cognitive or behavioral therapy. ? Acupuncture or massage therapy. ? You may continue all activities unless the activities cause more pain. When the pain gets better, slowly resume your normal activities. Gradually increase the intensity and duration of your activities or exercise. Managing pain, stiffness, and swelling ? Treatment may include medicines for pain and inflammation that are taken by mouth or applied to theskin. Take [id number] and prescription medicines only as told by your health care provider. ? When your pain is severe, bed rest may be helpful. Lie or sit in any position that is comfortable, but get out of bed and walk around at least every couple of hours. ? If directed, apply heat to the affected area as often as told by your health care provider. Use theheat source that your health care provider recommends, such as a moist heat pack or a heating pad. ? Place a towel between your skin and the heat source. ? Leave the heat on for 20???30 minutes. ? Remove the heat if your skin turns bright red. This is especially important if you are unable to feel pain, heat, or cold. You may have a greater risk of getting burned. ? If directed, put ice on the painful area. To do this: ? Put ice in a plastic bag. ? Place a towel between your skin and the bag. ? Leave the ice on for 20 minutes, 2???3 times a day. ? Remove the ice if your skin turns bright red. This is very important. If you cannot feel pain, heat, or cold, you have a greater risk of damage to the area. General instructions ? Your health care provider may recommend that you see a physical therapist. This person can help youcome up with a safe exercise program. ? If told by your health care provider, do physical therapy exercises to improve movement and strength in the affected area. ? Keep all follow-up visits. This is important. This includes any physical therapy visits. Contact a health care provider if: ? Your pain gets worse. ? Medicines do not help ease your pain. ? You cannot use the part of your body that hurts, such as your arm, leg, or neck. ? You have trouble sleeping. ? You have trouble doing your normal activities. Get help right away if: ? You have a new injury and your pain is worse or different. ? You feel numb or you have tingling in the painful area. Summary ? Musculoskeletal pain refers to aches and pains in your bones, joints, muscles, and the tissues thatsurround them. ? This pain can occur in any part of the body. ? Your health care provider may recommend that you see a physical therapist. This person can help youcome up with a safe exercise program. Do any exercises as told by your physical therapist. ? Lower your stress level. Stress can worsen musculoskeletal pain. Ways to lower stress may include meditation, yoga, cognitive or behavioral therapy, acupuncture, and massage therapy. This information is not intended to replace advice given to you by your health care provider. Make sure you discuss any questions you have with your health care provider. Document Revised: 08/14/2020 Document Reviewed: 07/23/2020 [employer] Patient Education ?? 2022 [employer] Neck Exercises Ask your health care provider which exercises are safe for you. Do exercises exactly as told by your health care provider and adjust them as directed. It is normal to feel mild stretching, pulling, tightness, or discomfort as you do these exercises. Stop right away if you feel sudden pain or your pain gets worse. Do not begin these exercises until told by your health care provider. Neck exercises can be important for many reasons. They can improve strength and maintain flexibility in your neck, which will help your upper back and prevent neck pain. Stretching exercises Rotation neck stretching 1.?? Sit in a chair or stand up. 2.?? Place your feet flat on the floor, shoulder-width apart. 3.?? Slowly turn your head (rotate) to the right until a slight stretch is felt. Turn it all the way to the right so you can look over your right shoulder. Do not tilt or tip your head. 4.?? Hold this position for 10???30 seconds. 5.?? Slowly turn your head (rotate) to the left until a slight stretch is felt. Turn it all the way to the left so you can look over your left shoulder. Do not tilt or tip your head. 6.?? Hold this position for 10???30 seconds. Repeat times. Complete this exercise times a day. Neck retraction 1.?? Sit in a sturdy chair or stand up. 2.?? Look straight ahead. Do not bend your neck. 3.?? Use your fingers to push your chin backward (retraction). Do not bend your neck for this movement. Continue to face straight ahead. If you are doing the exercise properly, you will feel a slight sensation in your throat and a stretch at the back of your neck. 4.?? Hold the stretch for 1???2 seconds. Repeat times. Complete this exercise times a day. Strengthening exercises Neck press 1.?? Lie on your back on a firm bed or on the floor with a pillow under your head. 2.?? Use your neck muscles to push your head down on the pillow and straighten your spine. 3.?? Hold the position as well as you can. Keep your head facing up (in a neutral position) and your chin tucked. 4.?? Slowly count to 5 while holding this position. Repeat times. Complete this exercise times a day. Isometrics These are exercises in which you strengthen the muscles in your neck while keeping your neck still (isometrics). 1.?? Sit in a supportive chair and place your hand on your forehead. 2.?? Keep your head and face facing straight ahead. Do not flex or extend your neck while doing isometrics. 3.?? Push forward with your head and neck while pushing back with your hand. Hold for 10 seconds. 4.?? Do the sequence again, this time putting your hand against the back of your head. Use your head andneck to push backward against the hand pressure. 5.?? Finally, do the same exercise on either side of your head, pushing sideways against the pressure ofyour hand. Repeat times. Complete this exercise times a day. Prone head lifts 1.?? Lie face-down (prone position), resting on your elbows so that your chest and upper back are raised. 2.?? Start with your head facing downward, near your chest. Position your chin either on or near your chest. 3.?? Slowly lift your head upward. Lift until you are looking straight ahead. Then continue lifting yourhead as far back as you can comfortably stretch. 4.?? Hold your head up for 5 seconds. Then slowly lower it to your starting position. Repeat times. Complete this exercise times a day. Supine head lifts 1.?? Lie on your back (supine position), bending your knees to point to the ceiling and keeping your feet flat on the floor. 2.?? Lift your head slowly off the floor, raising your chin toward your chest. 3.?? Hold for 5 seconds. Repeat times. Complete this exercise times a day. Scapular retraction 1.?? Stand with your arms at your sides. Look straight ahead. 2.?? Slowly pull both shoulders (scapulae) backward and downward (retraction) until you feel a stretch between your shoulder blades in your upper back. 3.?? Hold for 10???30 seconds. 4.?? Relax and repeat. Repeat times. Complete this exercise times a day. Contact a health care provider if: ? Your neck pain or discomfort gets worse when you do an exercise. ? Your neck pain or discomfort does not improve within 2 hours after you exercise. If you have any of these problems, stop exercising right away. Do not do the exercises again unlessyour health care provider says that you can. Get help right away if: ? You develop sudden, severe neck pain. If this happens, stop exercising right away. Do not do the exercises again unless your health care provider says that you can. This information is not intended to replace advice given to you by your health care provider. Make sure you discuss any questions you have with your health care provider. Document Revised: 10/06/2021 Document Reviewed: 10/06/2021 [employer] Patient Education ?? 2022 [employer] Tests Performed Radiology XR Spine Cervical 2 or 3 Views 01/02/2023 11:35 EDT Medications and Immunizations Administered Given acetaminophen, 1000 mg, Oral Toradol, 30 mg, IM Patient/Speedometer Inspector Signature Patient Name:PRAVEENA CHEN Dionicio I have received this information and my questions have been answered. Patient/Speedometer Inspector Name: Patient/Speedometer Inspector Signature: Relationship to Patient: Witness Name/Signature: Date: Electronically Signed on: 01/02/2023 11:51 EDTSigned by:OLGA Patient Care team information Care Team Personnel Name: Tawanna Ventura Position: Nurse Member Role: ED Nurse Name: BERT Agudelo Position: Physician Member Role: Physician Address: Address: [address] [place] [id number] Care Team Related Persons Name: ROBERTA CHEN Address: [address] [id number] [facility] Name: JONATAN CHEN
[2023-04-04 15:56] LABS: ALT 44 U/L (16-63); AST 18 U/L (15-37); Albumin 4.1 g/dL (3.4-5.0); Alkaline Phosphatase 49 U/L (46-116); Anion Gap 8.7 mmol/L (3-11); BUN 18 mg/dL (7-18); Bilirubin, Total 0.5 mg/dL (0.2-1.0); CO2 27.3 mmol/L (21.0-32.0); CREATININE 1.1 mg/dL (0.70-1.30); Calcium 9.2 mg/dL (8.5-10.1); Calculated LDL 149 mg/dL (<100); Chloride 101 mmol/L (98-107); Cholesterol 238 mg/dL (<200); Estimated GFR 87.03 (mL/min/1.73m2); Glucose 101 mg/dL (74-106); HDL Cholesterol 33 mg/dL (40-60); Potassium 4.2 mmol/L (3.5-5.1); Sodium 137 mmol/L (136-145); Total Protein 7.3 g/dL (6.4-8.2); Triglyceride 284 mg/dL (<150)
== END 2023-04-04 10:12 | disposition home or self-care (01) ==
LOC: NCHCN 10:11
PROVIDERS: Visit Provider Nurse Practitioner Family
DX: E78.5 Hyperlipidemia, unspecified (principal)
CPT/HCPCS: 80053; 80061; 83721

== ENCOUNTER 2023-08-15 10:34 | Emergency (ER) | payer BC, SELFPAY ==
[2023-08-15 10:38] VITALS: BP 146/103; PULSE 68; RESP 18; O2SAT 99
[2023-08-15 10:44] VITALS: RESP 18
--- NOTE | 2023-08-15 11:00 | DI.MRI_ITS ---
Exam(s) MR BRAIN WO EXAM: MR BRAIN WO CLINICAL HISTORY: HEADACHE TECHNIQUE: Multiplanar multisequence MRI of the brain was performed. COMPARISON: No exams were available for comparison FINDINGS: VENTRICLES AND EXTRA AXIAL SPACES: Normal in size and morphology for the patient's age. MIDLINE SHIFT: None. CEREBRAL PARENCHYMA: No focus of restricted diffusion to suggest acute infarct. No space-occupying le raina identified. HEMORRHAGE: None. BRAINSTEM/CEREBELLUM: Normal. CALVARIUM: Normal. VISUALIZED PARANASAL SINUSES/MASTOIDS:Clear. [place]: Normal flow void. PITUITARY GLAND: Unremarkable. OTHER FINDINGS: None. IMPRESSION: No acute intracranial process. DATA REPOSITORY:
[2023-08-15] MEDS: diphenhydrAMINE 50 MG/ML VIAL 12.5 MG IVP (11:10)
[2023-08-15] MEDS: Ketorolac 15 MG/ML VIAL 10 MG IVP (11:11)
[2023-08-15] MEDS: Prochlorperazine 10 MG/2 ML VIAL IVP (11:11)
[2023-08-15] MEDS: Normal Saline 1,000 ML 1000 ML IV (11:11)
[2023-08-15 11:19] LABS: Abs Immature Grans 0.03 10^3/uL (0.0-0.06); Absolute Basophil Count 0.04 10^3/uL (0.0-0.2); Absolute Lymphocyte Count 1.52 10^3/uL (1.2-3.4); Absolute Monocyte Count 0.51 10^3/uL (0.1-0.8); Absolute Neutrophil Count 3.92 10^3/uL (1.2-6.7); Basophils % 0.7; Eosinophils % 1.6; HCT 44.1 % (40.0-50.0); HGB 15.7 g/dL (13.5-17.5); Immature Grans % 0.5; Lymphocytes % 24.8; MCHC 35.6 % (32.0-36.0); MCV 84 fL (80-95); MPV 9.4 fL (8.0-11.0); Monocytes % 8.3; Neutrophils % 64.1; Platelet Count 234 10^3/uL (130-400); RBC 5.23 10^6/uL (4.36-5.78); RDW 12.1 % (11.8-14.1); RDW-SD 36.5 fL; WBC 6.12 10^3/uL (4.4-10.8)
[2023-08-15 11:34] LABS: ALT 54 U/L (16-63); AST 22 U/L (15-37); Albumin 4.2 g/dL (3.4-5.0); Alkaline Phosphatase 60 U/L (46-116); Anion Gap 8.1 mmol/L (3-11); BUN 14 mg/dL (7-18); Bilirubin, Total 0.7 mg/dL (0.2-1.0); CO2 28.9 mmol/L (21.0-32.0); Calcium 8.5 mg/dL (8.5-10.1); Chloride 102 mmol/L (98-107); Estimated GFR 97.58 (mL/min/1.73m2); Glucose 108 mg/dL (74-106); Potassium 3.8 mmol/L (3.5-5.1); Sodium 139 mmol/L (136-145); Total Protein 7.2 g/dL (6.4-8.2)
--- NOTE | 2023-08-15 15:00 | ED.GENADUL_ITS ---
Discharge Plan Disposition Patient Disposition: Home Discharge Details Clinical Impression: Migraine headache with aura Primary Care Provider: Unknown,Unknown ED Provider: Rj Christian Home Meds and New Rx's Prescriptions: No Action cyclobenzaprine 10 mg tablet 10 mg PO TID PRN (Reason: muscle spasm) Qty: 20 0RF Rx Instructions: May take 1 tab every 8 hours as needed for muscle spasm/pain atorvastatin 20 mg Tablet 20 mg PO QPM Patient Comments: states he should be taking but doesn't omeprazole 40 mg Capsule,Delayed Release(Dr/Ec) 20 mg PO DAILY loratadine [Claritin] 10 mg Tablet 10 mg PO DAILY PRN ibuprofen [Ibuprofen IB] 200 mg Tablet 400 mg PO Q4H PRN acetaminophen 500 mg Tablet 1,000 mg PO Q4H Discharge Instructions Instructions: General Headache (ED) Additional Instructions: Patient is to drink plenty of water. You have been referred to neurology for follow-up. These symptoms can be serious and difficult to discern if it is a stroke, so always return to the emergency department for evaluation if you have any concerns HPI General Date/Time Provider Initiated Documentation: 08/15/23 10:35 . Limitations to Documentation: no limitations . Information obtained by: patient . HPI Narrative: 42-year-old gentleman with past medical history of headaches presents for evaluation of acute onset visual change, headache and arm numbness. He reports that starting around 830 this morning he is had spots in his vision. He had headache. No nausea or vomiting. He had a metallic taste in his mouth and he states that his mouth felt like after he had gone to the dentist. He felt like his left arm was numb but did not have any weakness. Did not have any speech change or facial muscle change. The patient denies any chest pain or shortness of breath. He reports that he does have a history of migraine headaches but has not had one in a very long time. Related Data Home Medications Medication Instructions Recorded Confirmed atorvastatin 20 mg tablet 20 mg PO QPM 02/05/19 03/22/22 loratadine 10 mg tablet (Claritin) 10 mg PO DAILY PRN 02/05/19 03/22/22 omeprazole 40 mg capsule,delayed 20 mg PO DAILY 02/05/19 03/22/22 release acetaminophen 500 mg tablet 1,000 mg PO Q4H 03/19/22 03/22/22 ibuprofen 200 mg tablet (Ibuprofen 400 mg PO Q4H PRN 03/19/22 03/22/22 IB) cyclobenzaprine 10 mg tablet 10 mg PO TID PRN muscle spasm #20 03/22/22 03/22/22 tabs Previous Rx's Medication Instructions Recorded cyclobenzaprine 10 mg tablet 10 mg PO TID PRN muscle spasm #20 03/22/22 tabs Allergies Allergy/AdvReac Type Severity Reaction Status Date / Time No Known Allergies Allergy Unverified 08/15/23 10:41 General Stated Complaint: GenMedical KELVIN: 3 Exam Narrative Exam Narrative: Review of Systems: All systems reviewed & are unremarkable except as noted in HPI and below Well-developed, no acute distress NCAT PERRL, normal conjunctiva , visual garcia intact, normal confrontation RRR, no murmur Unlabored respiratory effort, clear bilaterally Nondistended abdomen, nontender Extremities w/o deformity, no cyanosis, no edema No rashes or lesions. no focal neurologic deficits, cranial nerves intact, no pronator drift, normal gait, normal sensation Appropriate mood and affect Course Vital Signs Vital signs: Vital Signs Pulse 68 08/15/23 10:38 Respiratory Rate 18 08/15/23 10:38 Blood Pressure 146/103 H 08/15/23 10:38 Pulse Oximetry 99 08/15/23 10:38 Pulse 68 08/15/23 10:38 Respiratory Rate 18 08/15/23 10:44 Respiratory Effort Normal 08/15/23 10:44 Respiratory Depth Normal 08/15/23 10:44 Respiratory Pattern Normal 08/15/23 10:44 Blood Pressure 146/103 H 08/15/23 10:38 Pulse Oximetry 99 08/15/23 10:38 Oxygen Delivery Method Room Air 08/15/23 10:38 Oxygen Flow Rate 0 08/15/23 10:38 Lab/Test Results Lab/Test Results: Laboratory Tests Range/Units 08/15/23 11:01 WBC (4.4-10.8) 10^3/uL 6.12 RBC (4.36-5.78) 10^6/uL 5.23 Hgb (13.5-17.5) g/dL 15.7 Hct (40.0-50.0) % 44.1 MCV (80-95) fL 84 MCH (27.0-33.0) pg 30.0 MCHC (32.0-36.0) % 35.6 RDW (11.8-14.1) % 12.1 Plt Count (130-400) 10^3/uL 234 MPV (8.0-11.0) fL 9.4 Immature Gran % 0.5 Neutrophils % 64.1 Lymphocytes % 24.8 Monocytes % 8.3 Eosinophils % 1.6 Basophils % 0.7 Nucleated RBC % (0.0-0.3) % 0.0 Absolute Neutrophils (1.2-6.7) 10^3/uL 3.92 Absolute Lymphocytes (1.2-3.4) 10^3/uL 1.52 Absolute Monocytes (0.1-0.8) 10^3/uL 0.51 Absolute Eosinophils (0.0-0.7) 10^3/uL 0.10 Absolute Basophils (0.0-0.2) 10^3/uL 0.04 Sodium (136-145) mmol/L 139 Potassium (3.5-5.1) mmol/L 3.8 Chloride (98-107) mmol/L 102 Carbon Dioxide (21.0-32.0) mmol/L 28.9 Anion Gap (3-11) mmol/L 8.1 BUN (7-18) mg/dL 14 Creatinine (0.70-1.30) mg/dL 1.0 Est GFR (CKD-EPI 2020) (mL/min/1.73m2) 97.58 Glucose (74-106) mg/dL 108 H Calcium (8.5-10.1) mg/dL 8.5 Total Bilirubin (0.2-1.0) mg/dL 0.7 AST (15-37) U/L 22 ALT (16-63) U/L 54 Alkaline Phosphatase (46-116) U/L 60 Total Protein (6.4-8.2) g/dL 7.2 Albumin (3.4-5.0) g/dL 4.2 Medical Decision Making Emergent evaluation of acute neurologic changes in the setting of headache. Patient has no acute neurologic deficits on my examination. His visual garcia are intact. He is not a stroke activation based on the symptoms. Symptoms are most concerning for a complex migraine or an ocular migraine. He does have a history of migraine headaches. Will give medications to treat symptoms and sent for an MRI to evaluate for other acute intracranial process and rule out stroke. Lab work reviewed, no significant abnormalities. Symptoms resolved after medications. MRI reviewed, no acute intracranial process or CVA. Patient placed on referral for neurology for complex migraine follow-up. Otherwise patient is discharged in good condition. Return precautions advised. All questions answered. Medical Records Medical records reviewed: Yes I reviewed the patient's medical records. Lab Data Lab results reviewed: Yes I reviewed the patient's lab results. Quality:SDOH Health Related Social Needs: No Data to Display PFSH All Active Problems Migraine headache with aura (Acute) No-show for appointment (Acute) Impingement syndrome of right shoulder (Acute ~05/2019) Bursitis of right shoulder (Acute ~05/2019) SLAP lesion of right shoulder (Acute ~05/2019) Medical History Anxiety Surgical History H/O wisdom tooth extraction Social History Smoking/Tobacco Use Status: Never Smoking risk assessment performed?: Yes Alcohol Intake: current Alcohol Intake frequency: a few times a month Alcohol type: beer, wine and hard liquor Drug use: Never Do you feel safe at home: Yes Do you feel safe in your relationship?: Yes
--- NOTE | 2023-08-15 15:16 | NUR.NOTE ---
Referral faxed to [facility] Neurology for complex migraines for next available appt. Nursing Note:
== END 2023-08-15 13:05 | disposition home or self-care (01) ==
LOC: ER 13:01
PROVIDERS: Emergency Provider Emergency Medicine
DX: G43.109 Migraine with aura, not intractable, without status migrainosus (principal)
CPT/HCPCS: 80053; 82962; 96374; 96375; 99284; 70551; 85025; J0780; J1200; J1885

== ENCOUNTER 2025-01-01 08:29 | Emergency (ER) | payer SELFPAY ==
[2025-01-01 08:35] VITALS: BP 136/90; PULSE 64; RESP 18; O2SAT 100
[2025-01-01] MEDS: Lidocaine 1% Multi-Dose W/EPI 1/100,000 10 ML VIAL IJ (08:40)
[2025-01-01] MEDS: Diph,Pertuss(Acell),Tet Vac/Pf 0.5 ML SYR IM (08:44)
--- NOTE | 2025-01-01 08:51 | W.ED.GENAD ---
Discharge Plan Disposition Patient Disposition: Home Discharge Details Clinical Impression: Laceration of left index finger Primary Care Provider: None,None ED Provider: Lance Elias Home Meds and New Rx's Prescriptions: No Action cyclobenzaprine 10 mg tablet 10 mg PO TID PRN (Reason: muscle spasm) Qty: 20 0RF Rx Instructions: May take 1 tab every 8 hours as needed for muscle spasm/pain atorvastatin 20 mg Tablet 20 mg PO QPM Patient Comments: states he should be taking but doesn't omeprazole 40 mg Capsule,Delayed Release(Dr/Ec) 20 mg PO DAILY loratadine [Claritin] 10 mg Tablet 10 mg PO DAILY PRN ibuprofen [Ibuprofen IB] 200 mg Tablet 400 mg PO Q4H PRN acetaminophen 500 mg Tablet 1,000 mg PO Q4H Discharge Instructions Instructions: Laceration Repair With Stitches ED Additional Instructions: Please follow-up with your primary care provider regarding your visit to the emergency department today. Be sure to discuss results of all test performed here today to include radiology, and laboratory testing as well as results for any pending cultures. You may follow-up for suture removal within 10 to 14 days from any urgent care, primary care clinic or emergency department. Should your symptoms worsen, or if you develop new concerning symptoms, please return immediately emergency department for further evaluation. HPI General Date/Time Provider Initiated Documentation: 01/01/25 08:33. HPI Narrative: MDM/Narrative: Initial Assessment: Finger laceration near joint line. ED Course: Digital block with 3 mL Xylocaine 1% with epinephrine, wound irrigation, three sutures, bacitracin, loose bandage, Tdap vaccine. Final Assessment: Finger laceration near joint line. Digital block, wound irrigation, three sutures, bacitracin, loose bandage, Tdap vaccine. Clinical Impression: Finger laceration. Disposition: Discharge home, return if infection signs occur. Follow-up for suture removal in 10-14 days at primary care, urgent care, or ER. Patient Education: Watch for infection signs: worsening redness, swelling, pain, fevers, chills. Suture removal instructions provided. This document was created with assistance from [employer] Co-Staff Software Engineer. The patient consented to its use. HPI: The patient is a 44-year-old male presenting with a digital laceration sustained from a pocket knife at approximately 1900 hours today. The wound reopened and began to hemorrhage following the removal of a bandage 4 minutes prior to presentation. The patient seeks medical attention due to ongoing bleeding and the laceration's proximity to the joint line. He is uncertain of his last tetanus immunization. The patient reports no known drug allergies and has no significant medical history. His weight is recorded at 210 pounds. He has no history of previous sutures. ROS: Negative besides as mentioned above Exam: Vital signs: Reviewed. General Appearance: Alert and oriented. No acute distress. HEENT: NCAT, EOMI, not icteric. External ears normal. No rhinorrhea. Moist mucous membranes. Neck: Supple, full range of motion, no observable masses, No meningeal sign. Respiratory: No Respiratory distress. No tachypnea. Cardiovascular: RRR, no edema. Gastrointestinal: Soft, nondistended, No rebound tenderness. Back: No midline tenderness to palpation or palpable step-offs of the C/T/L spine. Musculoskeletal: No finger deformities or abnormalities. Full range of motion. Skin: There is a 3 cm linear laceration to the radial aspect of the base of the second digit of the left hand flexion extension intact, capillary refill less than 2 seconds sensation intact. No infection. Neurological: Sensation intact. Psychiatric: Appropriate for situation. Related Data Home Medications ?Medication ?Instructions ?Recorded ?Confirmed atorvastatin 20 mg tablet 20 mg PO QPM 02/05/19 03/22/22 loratadine 10 mg tablet (Claritin) 10 mg PO DAILY PRN 02/05/19 01/01/25 omeprazole 40 mg capsule,delayed 20 mg PO DAILY PRN 02/05/19 01/01/25 release acetaminophen 500 mg tablet 1,000 mg PO Q4H 03/19/22 01/01/25 ibuprofen 200 mg tablet (Ibuprofen 400 mg PO Q4H PRN 03/19/22 01/01/25 IB) escitalopram oxalate 20 mg tablet 20 mg PO DAILY 01/01/25 01/01/25 (Lexapro) Allergies Allergy/AdvReac Type Severity Reaction Status Date / Time No Known Allergies Allergy Unverified 01/01/25 08:37 General Stated Complaint: Laceration KELVIN: 4 Course Vital Signs Vital signs: Vital Signs Pulse 64 01/01/25 08:35 Respiratory Rate 18 01/01/25 08:35 Blood Pressure 136/90 01/01/25 08:35 Pulse Oximetry 100 01/01/25 08:35 Pulse 64 01/01/25 08:35 Respiratory Rate 18 01/01/25 08:35 Blood Pressure 136/90 01/01/25 08:35 Pulse Oximetry 100 01/01/25 08:35 Procedure Laceration Laceration 1: Date of Procedure: 01/01/25 Time of procedure: 08:54 Provider that performed the procedure: Lance Elias Standard Time Out Performed: Yes Patient Consented: Verbally Site: hand Description: linear (3 cm) Depth: simple, single layer Local anesthetic: Lidocaine 1% and with Epi Amount of anesthesia used (mL): 3 Skin layer closed with: nylon Suture size: 5-0 Number of sutures:: 3 Technique: simple, interrupted Complications: None PFSH All Active Problems (Updated 01/01/25 @ 08:57 by Lance Elias MD) Laceration of left index finger (Acute) No-show for appointment (Acute) Impingement syndrome of right shoulder (Acute ~05/2019) Bursitis of right shoulder (Acute ~05/2019) SLAP lesion of right shoulder (Acute ~05/2019) Medical History (Updated 01/01/25 @ 08:57 by Lance Elias MD) Anxiety Surgical History H/O wisdom tooth extraction Social History Smoking/Tobacco Use Status: Never Smoking risk assessment performed?: Yes Alcohol Intake: current Alcohol Intake frequency: a few times a month Alcohol type: beer, wine and hard liquor Drug use: Never Do you feel safe at home: Yes Do you feel safe in your relationship?: Yes PAWSS Have you Been Recently Intoxicated or Drunk Within the Last 30 days?: No Have you Ever Experienced Previous Episodes of Alcohol Withdrawal?: No Have you ever Experienced Withdrawal Seizures?: No Have you ever Experienced Delirium Tremens(DT)s?: No Have you ever undergone Alcohol Rehabilitation Treatment (i.e, inpt ot outpatient treatment programs)?: No Have you ever Experienced Blackouts?: No Have you ever Combined Alcohol with other Downers within the last 90 days?: No Have you ever Combined Alcohol with any other Substance of Abuse during the last 90 days?: No Positive Blood Alcohol level on Presentation? [PCS.BAL]: No Evidence of Increased Autonomic Activity (i.e. HR>120, tremor, sweating, agitation, nausea)?: No Result: 0
== END 2025-01-01 09:10 | disposition home or self-care (01) ==
LOC: ER 10:42
PROVIDERS: Emergency Provider General Practice
DX: S61.211A Laceration without foreign body of left index finger without damage to nail, initial encounter (principal); W26.0XXA Contact with knife, initial encounter
CPT/HCPCS: 90471; 12002; 90715; J2004

== ENCOUNTER 2025-01-09 07:59 | Emergency (ER) | payer SELFPAY ==
[2025-01-09 07:59] VITALS: BP 138/86; PULSE 61; RESP 15; TEMP 36.4; O2SAT 99
--- NOTE | 2025-01-10 08:10 | ED.GENADUL_ITS ---
Discharge Plan Disposition Patient Disposition: Home Condition: Stable Discharge Details Clinical Impression: Visit for suture removal Primary Care Provider: None,None ED Provider: Asiya Russell Home Meds and New Rx's Prescriptions: Continued atorvastatin 20 mg Tablet 20 mg PO QPM Patient Comments: states he should be taking but doesn't omeprazole 40 mg Capsule,Delayed Release(Dr/Ec) 20 mg PO DAILY PRN loratadine [Claritin] 10 mg Tablet 10 mg PO DAILY PRN ibuprofen [Ibuprofen IB] 200 mg Tablet 400 mg PO Q4H PRN acetaminophen 500 mg Tablet 1,000 mg PO Q4H escitalopram oxalate [Lexapro] 20 mg tablet 20 mg PO DAILY Discharge Instructions Additional Instructions: You may apply bacitracin or Vaseline topically to help with wound heal, it may continue to itch as it heals Please return with redness, drainage, or should any new concerns arise You are cleared to return to work at this time, full duty Discharge Data Discharge Date/Time-TO BE ENTERED AT DEPARTURE: 01/09/25 08:41 HPI General Date/Time Provider Initiated Documentation: 01/09/25 08:15 . HPI Narrative: This 44-year-old male presents for suture removal on his left index finger. He had 3 sutures placed would like to return to work denies any complications. Related Data Home Medications ?Medication ?Instructions ?Recorded ?Confirmed atorvastatin 20 mg tablet 20 mg PO QPM 02/05/19 loratadine 10 mg tablet (Claritin) 10 mg PO DAILY PRN 02/05/19 01/09/25 omeprazole 40 mg capsule,delayed 20 mg PO DAILY PRN 01/09/25 release acetaminophen 500 mg tablet 1,000 mg PO Q4H 03/19/22 0 01/09/25 ibuprofen 200 mg tablet (Ibuprofen 400 mg PO Q4H PRN 1 05/19/21 01/09/25 IB) escitalopram oxalate 20 mg tablet 20 mg PO DAILY 01/0101/09/25 (Lexapro) Allergies Allergy/AdvReac Type Severity Reaction Status Date / Time No Known Allergies Allergy Unverified 01/09/25 08:06 General Stated Complaint: SutureRem KELVIN: 4 Exam Narrative Exam Narrative: Left index finger with 3 sutures well-approximated no evidence of infection neurovascularly intact flexion and extension intact Course Vital Signs Vital signs: Vital Signs Temperature 36.4 C 01/09/25 07:59 Pulse 61 01/09/25 07:59 Respiratory Rate 15 01/09/25 07:59 Blood Pressure 138/86 01/09/25 07:59 Pulse Oximetry 99 01/09/25 07:59 Temperature 36.4 C 01/09/25 07:59 Temperature Source Oral 01/09/25 07:59 Pulse 61 01/09/25 07:59 Respiratory Rate 15 01/09/25 07:59 Blood Pressure 138/86 01/09/25 07:59 Blood Pressure Position Sitting 01/09/25 07:59 Pulse Oximetry 99 01/09/25 07:59 Oxygen Delivery Method Room Air 01/09/25 07:59 Oxygen Flow Rate 0 01/09/25 07:59 Pain Level 0 01/09/25 07:59 Medical Decision Making Plan: 3 sutures removed by me patient tolerated procedure he will return to work in a full duty capacity at this time. Return precautions reviewed [facility] All Active Problems (Updated 01/09/25 @ 08:22 by BERT Ryder) Visit for suture removal (Acute) Laceration of left index finger (Acute) No-show for appointment (Acute) Impingement syndrome of right shoulder (Acute ~05/2019) Bursitis of right shoulder (Acute ~05/2019) SLAP lesion of right shoulder (Acute ~05/2019) Medical History (Updated 01/09/25 @ 08:22 by BERT Ryder) Anxiety Surgical History H/O wisdom tooth extraction Social History Smoking/Tobacco Use Status: Never Smoking risk assessment performed?: Yes Alcohol Intake: current Alcohol Intake frequency: a few times a month Alcohol type: beer, wine and hard liquor Drug use: Never Housing: house Do you feel safe at home: Yes Do you feel safe in your relationship?: Yes
== END 2025-01-09 08:41 | disposition home or self-care (01) ==
PROVIDERS: Emergency Provider Physician Assistant
DX: S61.211D Laceration without foreign body of left index finger without damage to nail, subsequent encounter (principal); X58.XXXD Exposure to other specified factors, subsequent encounter